=== PATIENT | male | born 1955 | race Caucasian/White ===

== ENCOUNTER 2016-08-29 12:35 | Emergency (ER) | payer OTHER ==
[~2016-08-29] VITALS: Ht 162.6 cm; Wt 136.1 kg
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
[2016-08-29] MEDS ORDERED: FENTANYL PF 100 MCG/2 ML VIAL. IV PRN (13:30)
[2016-08-29] MEDS ORDERED: IV NORMAL SALINE 1000ML BAG 1,000 ML IV ONE (13:45)
[2016-08-29] MEDS ORDERED: ONDANSETRON PF 4 MG/2 ML VIAL. ONE (14:05)
[2016-08-29 14:13] LABS: BASO # 0.1 x10^3/uL (0.0-0.2); BASO % 1 % (0-3); EOS % 4 % (0-3); HEMATOCRIT 36.9 % (39.0-53.0); HEMOGLOBIN 12.1 g/dL (13.0-17.5); LYMPH # 2.2 x10^3/uL (1.0-4.8); LYMPH % 24 % (24-48); MEAN CORPUSCULAR HEMOGLOBIN 30 pg (25-35); MEAN CORPUSCULAR HGB CONC 33 g/dL (31-37); MEAN CORPUSCULAR VOLUME 90 fL (79-100); MONO % 8 % (0-9); NEUT % 63 % (31-73); PLATELET COUNT 338 x10^3/uL (140-400); RED BLOOD COUNT 4.09 x10^6/uL (4.30-5.70); RED CELL DISTRIBUTION WIDTH 14.4 % (11.5-14.5); WHITE BLOOD COUNT 9.3 x10^3/uL (4.0-11.0)
[2016-08-29] MEDS ORDERED: ONDANSETRON PF 4 MG/2 ML VIAL. IV ONE (14:15)
[2016-08-29 14:22] LABS: CALCIUM 9.3 mg/dL (8.5-10.1); CREATININE 1.1 mg/dL (0.7-1.3); GFR 67.8; POTASSIUM 4.2 mmol/L (3.5-5.1)
[2016-08-29 14:28] LABS: ALBUMIN 2.8 g/dL (3.4-5.0); ALBUMIN/GLOBULIN RATIO 0.6 (1.0-1.7); TOTAL BILIRUBIN 0.3 mg/dL (0.2-1.0); TOTAL PROTEIN 7.2 g/dL (6.4-8.2)
[2016-08-29] MEDS ORDERED: IOHEXOL 300 MG/ML 75 ML VIAL IV ONE (14:45)
[2016-08-29] MEDS ORDERED: CONTRAST GIVEN MC PRN (15:00)
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
--- NOTE | 2016-08-29 16:05 | RAD ---
CT of the thoracic and lumbar spine, 08/29/2016: This study was performed in conjunction with a CT chest, abdomen and pelvis. Multiplanar reconstructions were produced. The vertebral heights are well-maintained. There is a striated appearance within the T9 vertebral body compatible with a vertebral hemangioma. There are moderate scattered spurs in the thoracic spine. There are mild degenerative changes involving scattered facet joints. No significant canal narrowing is evident in the thoracic spine. The paraspinous soft tissues are unremarkable. In the lumbar spine there is bilateral spondylolysis at L5 which appears to be chronic. There is an associated grade 1 spondylolisthesis at L5-S1. There is a vacuum disc phenomenon at that level. There is moderate bilateral foraminal encroachment at L5-S1. There is no evidence of high-grade spinal stenosis. IMPRESSION: 1. No acute bony abnormality is detected. 2. Mild to moderate scattered degenerative changes. 3. Grade 1 spondylolisthesis at L5-S1 secondary to bilateral spondylolysis at L5. 4. T9 vertebral hemangioma.
[2016-08-29] MEDS ORDERED: CYCL10TA2 PO (16:38)
[2016-08-29 16:45] VITALS: BP 160/82
== END 2016-08-29 16:50 | disposition home or self-care (01) ==
LOC: ER 12:35
DX: M54.2 Cervicalgia (principal); R10.31 Right lower quadrant pain; M54.9 Dorsalgia, unspecified; Z88.1 Allergy status to other antibiotic agents; Z88.4 Allergy status to anesthetic agent; Z88.8 Allergy status to other drugs, medicaments and biological substances; V43.42XA Person boarding or alighting a car injured in collision with other type car, initial encounter; Y93.89 Activity, other specified; Y99.8 Other external cause status; Y92.488 Other paved roadways as the place of occurrence of the external cause
CPT/HCPCS: 36415; 70450; 71260; 72125; 74177; 80053; 85027; 96361; 96374; 96375; 99285; J2405; J3010; J7030